=== PATIENT | female | born 1945 | race Caucasian/White ===

== ENCOUNTER 2022-06-09 10:09 | Emergency (ER) | payer MEDICARE, OTHER, SELFPAY ==
[2022-06-09] VITALS (15 sets, daily range): BP systolic 138–167; BP diastolic 57–82; PULSE 48–88; RESP 18; TEMP 36.7; O2SAT 91–100; BMI 36.0
--- NOTE | 2022-06-09 11:01 | CRLHL7_ITS ---
For Patients: As a result of the Century Cures Act, medical imaging exams and procedure reports are released immediately into your electronic medical record. You may view this report before your referring provider. If you have questions, please contact your health care provider. INDICATION: Slurred speech. Recent stroke. Fall 2 weeks ago. LOC. COMPARISON: September 23, 2021 TECHNIQUE: CT examination of the head was performed as axial sections without intravenous contrast. Images were obtained from the vertex of the skull through the skull base. Please note that all CT scans at this facility use dose modulation, iterative reconstruction, and/or weight-based dosing when appropriate to reduce radiation dose to as low as reasonably achievable. FINDINGS: The calvaria are intact. No calvarial fracture. Mild diffuse involutional changes similar to the prior study. This includes cerebellar atrophy. There are moderate white matter changes which are likely small vessel ischemic. Focal area of right frontal encephalomalacia unchanged since 09/23/2021. Low-density area in the left frontal lobe new since the prior study likely a nonacute infarct. There is no hemorrhage in this area. There is no mass effect, midline shift, hemorrhage, edema or visible acute infarction. There is no abnormal extra-axial fluid collection. IMPRESSION: 1. Involutional changes consisting of atrophy and white matter disease. 2. Old right frontal infarct. Low-density area in the left frontal lobe likely an old infarct though it was not present 09/23/2021. 3. No acute appearing finding. No hemorrhage. No calvarial lesion. No abnormal extra-axial fluid collection. Please note that all CT scans at this facility use dose modulation, iterative reconstruction, and/or weight-based dosing when appropriate to reduce radiation dose to as low as reasonably achievable. Dictated by Berlin Crowder MD @ 06/09/2022 12:43:28 PM (Electronically Signed)
--- NOTE | 2022-06-09 11:46 | ED.GENADULT ---
HPI - General Adult General Time Seen by Provider: 11:47 Date Seen: 06/09/22 Chief complaint: Neuro Symptoms/Altered Deficit Stated complaint: From [facility] Time Seen by Provider: 06/09/22 11:27 Source: patient and RN notes reviewed Mode of arrival: ambulatory (Walks with a cane) Limitations: no limitations History of Present Illness HPI narrative: Patient is a 76-year-old female sent from [facility] a clinic for concern of an episode that happened 2 days ago. Shima was outside pain teen, did wear a mask while she was painting, had some empty bottles on a step. She went to clean this up, her laughed, she remembers going to throw some stuff in the trash and that is the last thing she remembers. She came to on the garage floor and was disoriented at 1st, she remembers wondering if she was trying to pain to her legs. She was unclear what did happen. She tried to get up but could not get up due to her knees hurting. She does note she has had a left knee replacement. She is able to ambulate but does still note bilateral knee pain. Her knees are not that painful with ambulation however. She was able to slide herself up against the wall in a graduate had to wait till her came home. She had a cut or a bite to the right lower inner lip. She did have seizures as a teenager per report, further details not known. She did have a stroke in August and was hospitalized at [facility]. She is not sure if there was atrial fibrillation or not but points to a monitor that they put in her. Looks like she has a loop recorder possibly in the left chest wall. She thinks she might be on some type of a blood thinner but does not now. She has no headache, she feels like she is back to her baseline as far as her prior stroke. She does note that she will still maybe have some word-finding difficulty and some slurred speech. She did go through rehab after her stroke. On an aside, she notes she has chronic lymphedema of her lower extremities. Related Data Home Medications Medication Instructions Recorded Confirmed atorvastatin 10 mg tablet 10 mg HS 06/09/22 clopidogrel 75 mg tablet 75 mg DAILY 06/09/22 memantine 5 mg tablet 5 mg 06/09/22 Previous Rx's Medication Instructions Recorded levetiracetam 500 mg tablet 500 mg PO BID #60 tabs 06/09/22 (Keppra) Allergies Allergy/AdvReac Type Severity Reaction Status Date / Time lisinopril Allergy Mild Cough Verified 06/09/22 11:16 amoxicillin Allergy Rash Verified 06/09/22 11:16 Review of Systems Status of ROS: Reports: 10 or more systems reviewed and unremarkable except as noted in History and below PFSH PFSH Social History Smoking Status: Former smoker What tobacco products do you use: cigarettes Smoking quit date/years: >15 years ago Do you use any of these nicotine containing products: None Second hand tobacco smoke exposure: No How often do you have a drink containing alcohol: 2-4 times a month How often do you have six or more drinks on one occasion: Never AUDIT-C Alcohol total score: 2 Non-prescribed substance use: denies use Exam Const: Vital Signs, click to edit/add: Vital Signs - 24 hr 06/09/22 10:58 06/09/22 12:54 Temperature 98.0 F Pulse Rate [Right Pulse Oximeter] 55 L 57 L Respiratory Rate 18 18 Blood Pressure [Ri ght Upper Arm] 163/82 H 142/62 H Pulse Oximetry 97 99 Oxygen Delivery Me thod Room Air Room Air Documenting provider has reviewed patient's vital signs: yes Common normals: no apparent distress, oriented x3, no limitations, healthy appearing, alert and well nourished General appearance: cooperative, comfortable and well kempt Nutritional appearance: obese HENMT: Common normals: normocephalic, head/scalp atraumatic (No visible traumatic lesions, no palpable tender areas), hearing grossly normal bilaterally, external ears normal, external nose normal, nasal mucous membranes and turbinates normal and moist oral mucous membranes (Does have white change on the right lower inner lip from either a bite/fall) Head and scalp: normocephalic and atraumatic (No visible traumatic lesions, no palpable tender areas) Nose: external nose normal and nasal mucous membranes and turbinates normal External ear: external ears normal Throat: posterior oropharynx normal and uvula midline Eye: Common normals: PERRL, EOMs intact bilaterally, conjunctivae normal and no scleral icterus Conjunctiva: conjunctiva(e) normal Pupil: PERRL Neck & C-Spine: Common normals: full ROM (No midline tenderness of her neck), no lymphadenopathy, supple, no meningeal signs, no JVD and thyroid normal Thyroid: thyroid normal Chest: Other: Has an implantable device left upper chest wall Resp: Common normals: normal respiratory effort, no retractions, no use of accessory muscles and clear to auscultation bilaterally Auscultation: clear to auscultation bilaterally Cardio: Common normals: no JVD, regular rate, regular rhythm, S1 normal heart sound, S2 normal heart sound, no gallops, no clicks and no murmurs Rate: regular rate Rhythm: regular rhythm Heart sounds: S1 normal and S2 normal GI: Common normals: Normal to inspection, nondistended, normoactive bowel sounds present, soft to palpation, non-tender, no hepatosplenomegaly and no masses Palpation: soft and no hepatosplenomegaly Extremity: Other: She is tender when I palpate through her pant legs on her knees but is able to stand on them. I had seen patient over in the endoscopy room due to the volume and the acuity in the ED and no ability for private examination. On initial examination, was unable to have her take her pants down and they would not pull up due to her chronic lymphedema. Neuro: Viri Coma Scale: document GCS findings Viri coma scale eye opening: Spontaneous (4) Viri coma scale verbal response: Orientated (5) Viri coma scale motor response: Obey commands (6) Viri coma scale total score: 15 Common normals: oriented x3, CN's II-XII intact bilaterally, moves all extremities, no focal motor deficits and no sensory deficits noted Sensorium/orientation: alert Meningeal signs: no meningeal signs Speech: speech normal (No noted deficits at this time, no word finding difficulty during exam) Psych: Appearance: well kempt Course Course Hospital Course: This patient has had a prior CVA, had an episode with probable loss of consciousness and no recollection for events 2 days ago. This happened in the evening. This certainly sounds suspicious for seizure-type activity. Will repeat neuro imaging, have her on pulse oximetry cardiac monitoring get appropriate labs. I will likely have to talk to Neurology at some point. Patient is not driving right now but does state she does like to drive. Have reviewed with her that in tell we do figure this out it is likely that we will ask her to not be driving. Consultations Consultation #1: Spoke with Dr. Flynn from stroke Neurology at [facility] at 1:30 p.m.. He was able to review her head CT which we had sent up. He believes these areas are her old infarct in she does not need a CTA or MRI. He does agree that this likely was a seizure given her history. He would load her with 1000 mg IV Keppra here and then start 500 mg b.i.d.. She should follow up outpatient with Neurology. I did subsequently reviewed this with the patient, we called her on the phone and reviewed this with him. He will be making his way back up here. I see that pharmacy is coming down with the IV Keppra and this will be initiated. She will be discharged to home once the Keppra is complete. Time: 13:44 Vital Signs Vital signs: Initial Vital Signs Temperature 98.0 F 06/09/22 10:58 Temperature Source Temporal Artery Scan 06/09/22 10:58 Pulse Rate 55 L 06/09/22 10:58 Respiratory Rate 18 06/09/22 10:58 Blood Pressure 163/82 H 06/09/22 10:58 Blood Pressure Mean 109 06/09/22 10:58 Blood Pressure Position Sitting 06/09/22 10:58 Pulse Oximetry 97 06/09/22 10:58 Oxygen Delivery Method 06/09/22 10:58 Vital Signs Temperature 98.0 F 06/09/22 10:58 Pulse Rate 55 L 06/09/22 10:58 Respiratory Rate 18 06/09/22 10:58 Blood Pressure 163/82 H 06/09/22 10:58 Pulse Oximetry 97 06/09/22 10:58 Oxygen Delivery Method 06/09/22 10:58 Temperature 98.0 F 06/09/22 10:58 Pulse Rate 57 L 06/09/22 12:54 Respiratory Rate 18 06/09/22 12:54 Blood Pressure 142/62 H 06/09/22 12:54 Pulse Oximetry 99 06/09/22 12:54 Oxygen Delivery Method 06/09/22 12:54 Medical Decision Making Lab Data Lab results reviewed: Yes I reviewed the patient's lab results Labs: Lab Results 06/09/22 06/09/22 06/09/22 Range/Units 11:57 11:57 11:57 WBC 6.84 (4.50-11.00) K/uL RBC 4.32 (4.00-5.20) m/uL Hgb 13.1 (12.0-16.0) gm/dL Hct 40.0 (33.0-51.0) % MCV 93 (80-100) fL MCH 30 (26-34) pg MCHC 33 (32-36) gm/dL RDW Coeff of Sruthi 12.1 (11.5-15.5) % Plt Count 249 (140-440) K/uL Neut % (Auto) 64.7 (42.0-72.0) % Lymph % (Auto) 23.7 (20-44) % [place] % (Auto) 7.5 (0.0-11.0) % Eos % (Auto) 2.9 (0.0-7.0) % Baso % (Auto) 0.9 (0.0-3.0) % Neut # (Auto) 4.43 (1.7-7.0) K/uL Lymph # (Auto) 1.62 (0.90-2.90) K/uL [place] # (Auto) 0.50 (0.00-0.90) K/UL Eos # (Auto) 0.20 (0.00-0.50) K/uL Baso # (Auto) 0.06 (0.00-0.30) K/uL Abs Immat Gran (auto) 0.02 (0.00-0.30) K/uL Sodium 135 (135-149) mmol/L Potassium 3.9 (3.6-5.1) mmol/L Chloride 101 (96-114) mmol/L Carbon Dioxide 25 (20-32) mmol/L BUN 18 (7-30) mg/dL Creatinine 1.0 (0.5-1.5) mg/dL Estimated Creat Clear 46.54 Estimated GFR 58 ml/min Glucose 97 (60-115) mg/dL Calcium 9.7 (8.4-10.6) mg/dL Magnesium 2.1 (1.5-2.6) mg/dL Total Bilirubin 0.8 (0.1-1.5) mg/dL AST 53 H (12-35) U/L ALT 28 (4-35) U/L Alkaline Phosphatase 70 (40-150) U/L C-Reactive Protein < 0.5 L (0.5-1.0) mg/dL NT-Pro-B Natriuret Pep 779 H (0-450) PG/mL Total Protein 7.2 (6.0-8.3) g/dL Albumin 4.3 (3.3-5.0) g/dL TSH (0.270-4.200) uIU/mL SARS-CoV-2 (PCR) (Negative) POC Troponin I 0.00 L (0.01-0.04) ng/ml 06/09/22 06/09/22 Range/Units 11:57 11:57 WBC (4.50-11.00) K/uL RBC (4.00-5.20) m/uL Hgb (12.0-16.0) gm/dL Hct (33.0-51.0) % MCV (80-100) fL MCH (26-34) pg MCHC (32-36) gm/dL RDW Coeff of Sruthi (11.5-15.5) % Plt Count (140-440) K/uL Neut % (Auto) (42.0-72.0) % Lymph % (Auto) (20-44) % [place] % (Auto) (0.0-11.0) % Eos % (Auto) (0.0-7.0) % Baso % (Auto) (0.0-3.0) % Neut # (Auto) (1.7-7.0) K/uL Lymph # (Auto) (0.90-2.90) K/uL [place] # (Auto) (0.00-0.90) K/UL Eos # (Auto) (0.00-0.50) K/uL Baso # (Auto) (0.00-0.30) K/uL Abs Immat Gran (auto) (0.00-0.30) K/uL Sodium (135-149) mmol/L Potassium (3.6-5.1) mmol/L Chloride (96-114) mmol/L Carbon Dioxide (20-32) mmol/L BUN (7-30) mg/dL Creatinine (0.5-1.5) mg/dL Estimated Creat Clear Estimated GFR ml/min Glucose (60-115) mg/dL Calcium (8.4-10.6) mg/dL Magnesium (1.5-2.6) mg/dL Total Bilirubin (0.1-1.5) mg/dL AST (12-35) U/L ALT (4-35) U/L Alkaline Phosphatase (40-150) U/L C-Reactive Protein (0.5-1.0) mg/dL NT-Pro-B Natriuret Pep (0-450) PG/mL Total Protein (6.0-8.3) g/dL Albumin (3.3-5.0) g/dL TSH 2.790 (0.270-4.200) uIU/mL SARS-CoV-2 (PCR) Negative SARS-CoV-2 (Negative) POC Troponin I (0.01-0.04) ng/ml Imaging Data CT scan - head: Attestation: I have reviewed the pertinent imaging results. Radiologist's impression: Patient: SHIMA ELLIS Facility:?[facility] Patient ID:?[id number] Site Patient ID:?[id number]. Site :?[id number] Study:?CT Head w/o-06/09/2022 12:18:40 PM Ordering Physician:?Jaspal Hong Final Report: INDICATION: Slurred speech. Recent stroke. Fall 2 weeks ago. LOC. COMPARISON: September 23, 2021 TECHNIQUE: CT examination of the head was performed as axial sections without intravenous contrast. Images were obtained from the vertex of the skull through the skull base. Please note that all CT scans at this facility use dose modulation, iterative reconstruction, and/or weight-based dosing when appropriate to reduce radiation dose to as low as reasonably achievable. FINDINGS: The calvaria are intact. No calvarial fracture. Mild diffuse involutional changes similar to the prior study. This includes cerebellar atrophy. There are moderate white matter changes which are likely small vessel ischemic. Focal area of right frontal encephalomalacia unchanged since 09/23/2021. Low-density area in the left frontal lobe new since the prior study likely a nonacute infarct. There is no hemorrhage in this area. There is no mass effect, midline shift, hemorrhage, edema or visible acute infarction. There is no abnormal extra-axial fluid collection. IMPRESSION: 1. Involutional changes consisting of atrophy and white matter disease. 2. Old right frontal infarct. Low-density area in the left frontal lobe likely an old infarct though it was not present 09/23/2021. 3. No acute appearing finding. No hemorrhage. No calvarial lesion. No abnormal extra-axial fluid collection. Please note that all CT scans at this facility use dose modulation, iterative reconstruction, and/or weight-based dosing when appropriate to reduce radiation dose to as low as reasonably achievable. Dictated by Berlin Crowder MD @ 06/09/2022 12:43:28 PM (Electronic Signature) ECG Data Attestation: I personally reviewed and interpreted this ECG as follows: (Sinus bradycardia, 55 beats per minute, QT corrected 484 milliseconds. No ischemia.) Prior ECG tracings: not available for review Critical Care Time Critical Care Time Critical Care Time: No Discharge Plan Discharge Clinical Impression: Seizure, History of ischemic right MCA stroke Patient Disposition: Home, Self-Care Condition: Stable Instructions: New-Onset Seizure in Adults (ED) Additional Instructions: Start Keppra 500 mg twice a day, next dose this evening. Need to get scheduled with outpatient Neurology, can have your primary care provider put through the referral. Please see your primary care provider within the next 1-3 days or as soon as possible. Did provide you with refills on the Keppra in case neurology consultation is a ways out. Activity Level: Activity as Tolerated Activity Detail: No swimming or taking baths alone. Showering is fine. Want to avoid water submerging if seizure should happen and there is no one there to rescue you. Prescriptions: New levetiracetam [Keppra] 500 mg tablet 500 mg PO BID Qty: 60 2RF No Action atorvastatin 10 mg tablet 10 mg HS clopidogrel 75 mg tablet 75 mg DAILY memantine 5 mg tablet 5 mg Stand Alone Forms: [facility] Info Instructions
--- NOTE | 2022-06-09 11:47 | CRLHL7_ITS ---
For Patients: As a result of the Cures Act, medical imaging exams and procedure reports are released immediately into your electronic medical record. You may view this report before your referring provider. If you have questions, please contact your health care provider. Indication: Trauma Technique: Two views each of each knee were acquired Comparison: None Findings: Left knee: Arthroplasty. No fracture, dislocation or destructive process. Normal alignment. No joint effusion. No abnormal lucency about the implant. The implant appears to be intact. Right knee: Osteoarthritis, mild, primarily involving the medial compartment. No fracture, dislocation or destructive process. No joint effusion. Bilaterally, the osseous structures are demineralized. Impression: Left knee arthroplasty. Mild degenerative changes of the right knee. No visible acute fracture, dislocation or destructive process on either side. No complication identified involving the left knee arthroplasty Dictated by Berlin Crowder MD @ 06/09/2022 12:49:40 PM (Electronically Signed)
[2022-06-09 12:11] LABS: Basophils Absolute Auto 0.06 K/uL (0.00-0.30); Basophils Percent Auto 0.9 % (0.0-3.0); Eosinophils Percent Auto 2.9 % (0.0-7.0); Hemoglobin* 13.1 gm/dL (12.0-16.0); Immature Granulocytes Abs Auto 0.02 K/uL (0.00-0.30); Lymphocytes Absolute Auto 1.62 K/uL (0.90-2.90); Lymphocytes Percent Auto 23.7 % (20-44); Mean Corpuscular HGB Conc 33 gm/dL (32-36); Mean Corpuscular Hemoglobin 30 pg (26-34); Mean Corpuscular Volume 93 fL (80-100); Monocytes Percent Auto 7.5 % (0.0-11.0); Neutrophils Absolute Auto 4.43 K/uL (1.7-7.0); Neutrophils Percent Auto 64.7 % (42.0-72.0); Platelet Count* 249 K/uL (140-440); RDW Coefficient of Variation % 12.1 % (11.5-15.5); Red Blood Count 4.32 m/uL (4.00-5.20); White Blood Count* 6.84 K/uL (4.50-11.00)
[2022-06-09 12:17] LABS: Slide Review Reflex No
[2022-06-09 12:30] LABS: Albumin* 4.3 g/dL (3.3-5.0); Chloride* 101 mmol/L (96-114); Potassium* 3.9 mmol/L (3.6-5.1); Sodium* 135 mmol/L (135-149)
[2022-06-09 12:32] LABS: Est. Creatinine Clearance* 46.54; Estimated Glomerular Filt Rate 58 ml/min
[2022-06-09 12:33] LABS: Alanine Aminotransferase* 28 U/L (4-35); Alkaline Phosphatase* 70 U/L (40-150); Aspartate Amino Transferase* 53 U/L (12-35); Bilirubin Total* 0.8 mg/dL (0.1-1.5); Blood Urea Nitrogen* 18 mg/dL (7-30); Carbon Dioxide* 25 mmol/L (20-32); Glucose* 97 mg/dL (60-115); Total Protein* 7.2 g/dL (6.0-8.3)
[2022-06-09 12:34] LABS: Calcium* 9.7 mg/dL (8.4-10.6); Magnesium* 2.1 mg/dL (1.5-2.6)
[2022-06-09 12:42] LABS: C Reactive Protein* < 0.5 mg/dL (0.5-1.0); NT Pro B Type NatriureticPept* 779 PG/mL (0-450)
[2022-06-09 12:50] LABS: SARS PCR* Negative SARS-CoV-2 (Negative)
== END 2022-06-09 14:55 | disposition home or self-care (01) ==
PROVIDERS: Emergency Provider Family Medicine; PCP Physician Assistant Medical
DX: R56.9 Unspecified convulsions (principal); Z86.73 Personal history of transient ischemic attack (TIA), and cerebral infarction without residual deficits
CPT/HCPCS: 36415; 70450; 73560; 80053; 83735; 83880; 84443; 85025; 86140; 87635; 93005; 96365; 99284; 99285; J1953

== ENCOUNTER 2023-03-25 11:00 | Outpatient (RCR) | payer MEDICARE, OTHER, SELFPAY | END 2023-07-23 23:59 | disposition home or self-care (01) | PROVIDERS: PCP Physician Assistant Medical; Visit Provider Physician Assistant Medical | DX: K59.09 Other constipation (principal); Z51.89 Encounter for other specified aftercare | CPT/HCPCS: 97110; 97140; 97163; 97535 ==

== ENCOUNTER 2024-07-10 10:30 | Outpatient (RCR) | payer MEDICARE, OTHER, SELFPAY ==
--- NOTE | 2024-01-18 11:45 | OT.OPLDN2 ---
OT Outpatient Lymphedema Daily Note OT Outpatient Lymphedema Daily Note* Start: 12/14/23 15:10 Freq: Status: Active Protocol: Document 01/18/24 11:17 LCN (Rec: 01/18/24 11:28 LCN [id number]) E-signed By Chula Russell, OTR/L, CLT Type of Note Type of Note Type of Note Daily Note Visit Number [id number] OT OP Lymphedema Daily/Progress Note Current Condition/Medical Diagnosis Referring Provider Blanca MARCELINO Medical Contraindications Heart Condition,HTN,Epilepsy, Respiratory Medical History Medical History Obesity,CVI Medical History Comments Extensive issues with bowel incontinence /diarrhea ( hardly leaving house anymore, only if well timed many hours after eating). Has had PT pelvic help for this in the past when constipation was more the concern. Had extensive perineal tearing with one of her childbirths. Takes an evening muscle relaxer to help with insomnia, sleeps through 3-4 am if having the medication, other newby struggles without it. 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 Another milder CVA 06/09/22 smaller at L frontal area. Surgical History Surgical History Has had left knee replacement 16 yrs ago. Medications Medications Anticoagulation with INR checks every 90 days. No water pills. Family History Family History of Lymphedema Yes Family History of Lymphedema Comments grandmother (large hips/thighs , knees to ankle cuffs, narrow feet, ribs and shoulders), uncle (weeping lymphedema, keartotic changes) Subjective Subjective Wearing her BK OTC stockings until she can self marisol her velcro comrpession wraps. Liner stockings 15-25 mmHG are going on easily for her, willl need another trial session for self donning wraps . Her new Tatyana compression leggings waist to open toe are in, but she was not able to self-marisol, getting seams ankle aligned is challenging. Ordered compression wraps via [facility] [employer] [facility] are in. Shima Shahid is an insightful 78 y/o female who is recovering after her set of strokes in 2021 and was directed to look at taking care of her lymphedema by her aquatic automotive instructor, after reporting she hasn't belling down/deep creases at ankle folds making her 20-30 mmHG below knee compression no longer effective. Living Situation Current Living Situation Home With Spouse Or SO Current Living Situation Comments Lives her locally, who is very active outside/ yardwork has some OA. 2 daughters live in [place]. Patient Difficulties Difficulties With Any Of The Following Walking,Dressing,Reaching Feet & Toes,Preparing Meals Patient Difficulties Comments her skin hurts with donning stockings over them, hard to lift legs up into car and bed surfaces. Impairments Impairments Loss of Mobility,Difficulties With ADLs,Limb Heaviness,Poor Clothing Fit Impairments Comments Has to buy pants 2 sizes too big at waist to allow room for calves, thighs. Problem List Problem List Limited Knowledge of Lymphedema Treatment/Condition /Precautions,Limited Knowledge of Skin Care & Infection Precautions,Significant Risk For Infection For Lymphedema Related Complications,Does Not Have a HEP,Does Not Know How To Bandage For Limb Reduction, Does Not Have Appropriate Compression Garments For LT Management,Presents With Increased Fall Risk Secondary To Lymphedema,Presents With Impaired Mobility/ROM Exercise History Does Patient Exercise Regularly Yes Exercise Comments Goes to aquatic exercise 2x week at [facility]. Pedals her leg ergometer on floor 15 min everyday. Pain Pain Yes ROM/Strength ROM/Strength Comments Knee flexion limited to 100 degrees per soft tissue impingement , ankle dorsiflexion to 25 of 45 degrees B. Previous Treatment Previous Treatment For Swelling/ Compression Garment,Elevation Lymphedema Previous Treatment/Current Home Program Has had OT here at [facility] with Clare Valencia to address Lymphedema x 3-4 visits in 2013, was d/c with 20-30 mmHG stocking/silicone tops after trial of doing short stretch bandage wraps. Compression History Does Patient Currently Wear Compression No During Daytime Compression During Daytime Comments 23-30 mmHG below stockings too painful. Has tried many makes including zippers and silicone tops. Does Patient Currently Wear Compression No At Night Compression At Night Comments COMPRESSION IS MEDICALLY NECESSARY: Pt is affected by lymphedema trunk to toes with painful skin, limb heaviness for managing legs into pants, bed and car seat. Has springy fluffy, non-pitting edema at B thighs, thick creases, rubbery thin skin, raised varicosities for B lower 2/3 of shins, (+) Stemmer's Sign with redness for B feet. Day/Night time-- Would benefit from use of inelastic 20-50 mmHG velcro wraps BK w 15-25 mmHG liner stockings and use store bought upholstery mechanic compression capris to manage edema at thigs, hips. Current Swelling (Location/Pitting/Texture) Pitting Scale: 0 = No pitting 1+ Tissue returns to normal almost immediately 2+ Tissue returns after 15-30 seconds 3+ Tissue returns after 1-1/2 minutes 4+ Tissue returns after 2-3 minutes N/A Tissue no longer pits due to induration Tissue texture: Soft or indurated Clinical Presentation Area hips to ankles B affected by spongy firm non pitting edema with smooth pliable skin, fixed creases at medial knees , ankle cuffs. Distended toes , lower 2/3 of B legs are red/ purple. Scattered reticular varicosities. Cold skin temperature. Good capillary refill and pedal pulses. (+) Stemmers sign at toes. Triggering Event & Start Date of started in December 2013, presented Swelling/Lymphedema initially as limb heaviness with fatigue during walking, tolerating 1 block at that time. Had tried diuretics and UYEN wrapping for day hours at that time. Her hips and thigh lymphedema have steadily worsened since then and more so after her 2021 CVA's with his shorter shuffling gait and and new cane use. Skin Changes Hemosiderin Staining,Toe/Foot Deformities,Fibrosis,Limited Skin Mobility Positive Stemmer's Sign Yes Capillary Refill Brisk Type of Swelling Secondary Staging Staging Stage 3 Circumferential Measurements Lower Extremity Left Lower Extremity Great Toe (in cm) 7.2 MTP (in cm) 22.5 Arch (in cm) 22.5 Distance Between MTP's and Arch 4 Circumference Measurement Calcaneus (in cm) 32.3 Distance Between Arch and Calcaneus 8 Circumference Measurement 10 cm above Calcaneus Measurement 29 20 cm above Calcaneus Measurement 42.8 30 cm above Calcaneus Measurement 52.5 40 cm above Calcaneus Measurement 46 50 cm above Calcaneus Measurement 55 60 cm above Calcaneus Measurement 63.5 70 cm above Calcaneus Measurement 68.5 Total Girth in cm 441.8 Previous Total Girth in cm 446.8 Difference in Total Girth in cm -5.0 LE Volume A 161.14 LE Volume B 483.04 LE Volume C 748.29 LE Volume D 1038.23 LE Volume E 1813.06 LE Volume F 1933.00 LE Volume G 4 LE Volume H 2798.41 LE Volume I 3468.05 Lower Extremity Volume Total in cm 14,477.22 Previous Lower Extremity Volume Total in 14,766.8 cm Lower Extremity Volume Total Difference -289.58 in cm Right Lower Extremity Great Toe (in cm) 7.3 MTP (in cm) 21.9 Arch (in cm) 22 Distance Between MTP's and Arch 4 Circumference Measurement Calcaneus (in cm) 32.5 Distance Between Arch and Calcaneus 8 Circumference Measurement 10 cm above Calcaneus Measurement 29 20 cm above Calcaneus Measurement 43.5 30 cm above Calcaneus Measurement 52 40 cm above Calcaneus Measurement 48.8 50 cm above Calcaneus Measurement 51 60 cm above Calcaneus Measurement 60.5 70 cm above Calcaneus Measurement 69 Total Girth in cm 437.5 Previous Total Girth in cm 442.2 Difference in Total Girth in cm -4.7 LE Volume A 153.36 LE Volume B 478.57 LE Volume C 753.26 LE Volume D 1059.64 LE Volume E 1819.20 LE Volume F 2022.07 LE Volume G 1981.80 LE Volume H 2479.30 LE Volume I 3341.12 Lower Extremity Volume Total in cm 14,088.32 Previous Lower Extremity Volume Total in 14,618.2 cm Lower Extremity Volume Total Difference -529.88 in cm Circumferential Measurements Trunk Waist 102 Hips 128 Total Girth in cm 230 Assessment Assessment Working towards being (I) with self donning and massage techniques; need extra repetitions of education per CVA/new learning more challenging. Shima is having impaired integrity of skin & lymphedema lead to increased risk infection & skin breakdown.?Pt c/o decreased mobility of BLE d/t bulk of swelling in legs and impaired fit of pants. Legs are heavy, hard to feel where feet are, limited standing tolerance. Treatment Self-Care/Home Management Minutes ( 65 minutes) Self-Care/Home Management Comments OTR and pt work together to marisol compression capris Tatyana [employer] open toe to high waist leggings. Added use of dycem pad pn the fllor to adjust foot/ankle and also to smooth out wrinkles. Pt needed step by step cues for hand placement, seam placement and cues to takes breaths/ pace between steeps. Added modification of ankle cuff to reduce foot gapping of material. Competed trial session of self donning the velcro wraps, needing step by step cues, but has good sense of tension, strap direction and was able to return demo with 25% cues on 2nd side. Pt to wear her 20-30 mmHG OTC stockings on days between OT sessions. Pt wanting cheaper option for 2nd set of trunk compression capris. Issued ordering info for Under Armor 2 XL high waist to wear with her velcro wraps and foot/calf liners. OTR re-instructs HEP from visual aide with deep breaths x 5, MLD LN facilitation (x [address] each, guiding for gentle pressure) above clavicle/Terminus, axilla, inguinal LN, lateral trunk ING to AX, and pumping exercises (x 10 reps each)w trunk rotation. Pt needed step by step cues for this as well. Total Occupational Therapy Minutes 65 Patient Goals Patient Goals Hoping her legs can feel upholstery mechanic, easier to bend and tolerate clothing textures on her sensitive skin. Short Term Goals Goal: Patient and or caregiver will understand lymphedema precautions to decrease risk of infection and further lymphedema related complications Goal: Patient will develop a tolerance for wearing multi-layer, short stretch bandages between treatment sessions to facilitate limb decongestion Goal: Patient will experience decreased pitting edema in order to improve tissue health and decrease risk for infection/cellulitis Goal: Patient will perform HEP with minimal assistance in order to improve lymphatic flow and venous return Goal: Patient will perform self MLD protocol with minimal assistance to help reduce swelling and improve ROM and mobility Colon Therapist Goals (# of Weeks) 6 Intermediate Goals Goal: Patient and/or caregiver will be independent with short-stretch compression bandaging for continued volume reduction and prevention of recurrence Goal: Patient will experience increased ROM and mobility in order to improve safety and independence with transfers and mobility Goal: Patient will be independent with donning and doffing of compression garments which will enable regular daily garment wear Goal: Patient will achieve a specific reduction of cm from total measurements to enable functional improvements such as fitting into standard sized clothing and shoes, return to a prior level of functional mobility, improved balance, and reduced risk of falling. Indicate cm in comments below Goal: Patient and/or caregiver will be independent with HEP and lymphedema management to reduce risk for edema relapse and to reduce risk for infection Treatment Plan Treatment Plan Evaluation,Edema Control, Manual Therapy,Therapeutic Exercise,Self-Care/Home Management,Education Expected Frequency 1-2x Week Expected Duration 8-10 Weeks Occupational Therapy Billing Units Treatment Minutes Timed Treatment Minutes 65 Total Treatment Minutes 65 Billing Units Self Care/Home Management 4
== END 2024-11-07 23:59 | disposition home or self-care (01) ==
PROVIDERS: PCP Physician Assistant Medical; Visit Provider Physician Assistant Medical
DX: I89.0 Lymphedema, not elsewhere classified (principal); Z51.89 Encounter for other specified aftercare
CPT/HCPCS: 97140; 97165; 97535

== ENCOUNTER 2025-04-23 11:26 | Emergency (ER) | payer MEDICARE, OTHER, SELFPAY ==
[2025-04-23] VITALS (28 sets, daily range): BP systolic 122–195; BP diastolic 70–96; PULSE 51–61; RESP 5–32; TEMP 35.9; O2SAT 87–100
--- OUTSIDE RECORDS SUMMARY | 2025-04-23 11:28 | XMS_ITS | Clinical Summary ---
Author Organization [employer] [facility] Address [address] [place] [address] Care Team Providers Care Chainstitch Zipper Setter Name Role Phone Blanca Rush Primary Care Provider Allergies Active Allergy Reactions Criticality Noted Date Comments Amoxicillin 11/01/2006 ? Ciprofloxacin Rash,Itching 08/05/2010 Hydrochlorothiazide Intolerance-Can't Take 03/20/2008 Hyponatremia Lisinopril Cough 04/02/2008 Hydrocodone-Acetaminophen Other - Descri be In Comment Field 05/01/2008 On stopping, anxiety and agitation Medications FLONASE spray USE 1 TO 2 SPRAYS IN EACH NOSTRIL EVERY DAY 48 g 2 03/15/20 13 Active LOTEMAX 0.5 % ophthalmic gel Place 1 Drop into both eyes 4 times daily if needed. 09/14/19 19 Active ALPRAZolam (XANAX) 0.5 mg tabletIndications :Fear of flying Take 1 tablet by mouth at bedtime if needed for Anxiety. 4 tablet 03/06/20 Active inhalational spacing deviceIndications :Chronic obstructive pulmonary disease, unspecified COPD type (HC) For home use. 1 Device 08/20/20 Active NebulizerIndicati ons:Cough,Asthma, unspecified asthma severity, unspecified whether complicated, unspecified whether persistent (HC),COPD with chronic bronchitis (HC) Nebulizer, disposable neb kit x 4, reuseable neb kit x 1, mask x 1, filters x 1. Frequency of use: daily; Medication: Duoneb Length of need: 99 months 1 Device 09/03/19 20 Active WalkerIndications :Acute CVA (cerebrovascular accident) (HC) Walker with front wheels for home use. 1 Each 09/26/19 22 Active albuterol-ipratro pium (DUONEB) (2.5-0.5 mg) in 3 mL NEBULIZATION solutionIndicatio ns:Cough variant asthma (HC) INHALE THE CONTENTS OF 1 VIAL VIA NEBULIZER EVERY 6 HOURS IF NEEDED FOR COUGH AND SHORTNESS OF BREATH 90 mL 44 11/10/19 23 Active Wixela Inhub 250-50 mcg/dose diskus inhalerIndication s:Cough variant asthma (HC),Bronchitis USE 1 INHALATION TWICE A DAY 180 Each 3 11/10/19 23 Active propylene glycoL (Systane Complete) 0.6 % ophthalmic solutionIndicatio ns:Dry eyes Apply two drops 2-4 times a day. 20 mL 5 11/16/19 23 Active Graduated Compression StockingsIndicati ons:Toe pain, bilateral,Venous insufficiency For personal use. Length: Knee Strength: 20-30 mmHg 1 Packet 3 12/10/19 23 Active triamcinolone 0.5% (ARISTOCORT) 0.5 % creamIndications: Chronic eczema Apply topically to affected area(s) two times daily. 60 g 1 01/06/20 24 Active albuterol HFA (PRO-AIR; VENTOLIN; PROVENTIL) 90 mcg/actuation inhalerIndication s:Cough variant asthma (HC) Inhale 1-2 Puffs by mouth every 4 hours if needed for Shortness Of Breath. 8.5 g 20 08/01/20 24 Active atorvastatin 10 mg tabletIndications :Acute CVA (cerebrovascular accident) (HC) Take 1 Tablet (10 mg) by mouth at bedtime. 90 Tablet 3 01/29/20 25 Active citalopram 40 mg tabletIndications :Anxiety,Depressi on, unspecified depression type Take 1 Tablet (40 mg) by mouth once daily in the morning. 90 Tablet 3 01/29/20 25 Active clopidogreL 75 mg tabletIndications :Acute CVA (cerebrovascular accident) (HC) Take 1 Tablet (75 mg) by mouth once daily in the morning. 90 Tablet 3 01/29/20 25 Active furosemide 20 mg tabletIndications :HTN (hypertension) Take 1 Tablet (20 mg) by mouth once daily in the morning. 90 Tablet 3 01/29/20 25 Active levETIRAcetam 500 mg tabletIndications :Seizure (HC) Take 1 Tablet (500 mg) by mouth two times daily. 180 Tablet 3 01/29/20 25 Active levothyroxine 88 mcg tabletIndications :Hypothyroidism, unspecified type Take 1 Tablet (88 mcg) by mouth once daily. 90 Tablet 3 01/29/20 25 Active metoprolol tartrate 25 mg tabletIndications :HTN (hypertension) Take 1 Tablet (25 mg) by mouth two times daily. 180 Tablet 01/29/20 25 Active pramipexole 0.5 mg tabletIndications :Restless legs syndrome (RLS) TAKE ONE TABLET AT BEDTIME. 90 Tablet 01/29/20 25 Active RABEprazole 20 mg tabletIndications :Gastroesophageal reflux disease, unspecified whether esophagitis present Take 1 Tablet (20 mg) by mouth once daily. 90 Tablet 01/29/20 25 Active tiZANidine 4 mg tabletIndications :Muscle spasm TAKE 1 TABLET BY MOUTH TWICE DAILY NEEDED 180 Tablet 01/29/20 25 Active valsartan 160 mg tabletIndications :HTN (hypertension) Take 1 Tablet (160 mg) by mouth two times daily. 180 Tablet 01/29/20 25 Active memantine 5 mg tabletIndications :Acute CVA (cerebrovascular accident) (HC) Take 1 Tablet (5 mg) by mouth once daily. 90 Tablet 3 01/29/20 25 Active nystatin powder (Nystop) powderIndications :Fungal infection Apply a thin amount to the rash daily as needed 120 g 01/29/20 25 Active buPROPion (WELLBUTRIN XL) 150 mg Extended-Release tabletIndications :Depression, unspecified depression type Take 1 Tablet (150 mg) by mouth once daily in the morning. 30 Tablet 1 04/15/20 25 Active buPROPion 75 mg HCl tabletIndications :Depression, unspecified depression type Take 1 Tablet (75 mg) by mouth once daily. Based on updated ISMP guidelines, DO NOT crush or chew. 30 Tablet 1 03/18/20 25 025 Discontin ued(*Medi cation adjustmen t) buPROPion (WELLBUTRIN XL) 150 mg Extended-Release tabletIndications :Depression, unspecified depression type Take 1 Tablet (150 mg) by mouth once daily in the morning. 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 repeat echo Morbid obesity 07/21/2012 Gastropathy 02/14/2012 Abdominal pain, epigastric 01/25/2012 Overview (01/25/2012): EGD 12/2011 Reactive gastropathy Dysphagia, unspecified(787.20) 01/18/2012 Gallstones 12/28/2011 DONNA 06/30/2011 AHI-21 07/11/2011 Restless legs syndrome (RLS) 05/24/2011 Seborrhea capitis 04/22/2009 Knee joint replacement by other means 12/26/2007 Unspecified hypothyroidism 02/10/2007 Benign neoplasm of colon 01/24/2007 Overview (04/14/2015): Colonoscopy 01/2010 appendiceal polyp not removed, needs surgical resection Colonoscopy 01/2012 polyps repeat in [address] colonography 03/2015 normal, repeat in 5 years Diverticulosis of colon (without mention of hemo rrhage) 01/24/2007 Paroxysmal supraventricular tachycardia 11/02/19 07 Unspecified sleep apnea 11/01/2006 Osteoarthrosis, unspecified whether generalized or localized, hand 11/01/2006 Mitral valve disorders 11/01/2006 Assessment & Plan (04/15/2014 5:59 PM CDT): Per echocardiogram of March 2014, mild mitral regurgitation with normal LVEF Major depressive disorder, recurrent episode, un specified 11/01/2006 Unspecified asthma(493.90) Overview (11/27/2007): mild Unspecified essential hypertension Resolved Problems Problem Noted Date Diagnosed Date Resolved Date long-term (current) use of anticoagulants 12/28/2007 10/31/2008 long term care pharmacist (current) use of anticoagulants 12/26/2007 01/31/2008 Depressive disorder, not elsewhere classified 11/02/19 07 01/31/2008 Palpitations 11/01/2006 12/28/2011 Encounters Date Type Department Care Team Description 04/16/[address] [address] Blanca Rush PA Results 04/15/2025 10:30 AM CDT Office Visit [address] [address] Blanca Rush PA Medication Management (Wellbutrin - feeling more at peace but more tired and not feeling like doing anything, feeling neutral ) 04/15/2025 Travel 03/21/[address] [address] Blanca Rush PA Form 03/19/2025 Refill [facility] [address] [place] [address] Blanca Rush PA Refill Request (Bupropion HCL tabs 75mg) 03/18/2025 10:50 AM CDT Office Visit [facility] [address] [place] [address] Blanca Rush PA Follow Up (Lab results) 03/18/2025 Travel 01/28/2025 11:45 AM CDT Ancillary Procedure [facility] [address] [place] [address] 01/28/2025 10:30 AM CDT Office Visit [facility] [address] [place] [address] Blanca Rush PA Medicare ANNUAL (subsequent) Visit (79 years old); Concerns (Been drooling and doesn't even notice it x 2-3 months, wondering if she had another mild stroke and didn't know it); Leg Pain/problem (R leg pain and limping); Fatigue (Very tired all the time) 01/28/2025 Travel from Last 3 Months Immunizations Immunization Administration Dates Next Due AMB INFLUENZA IIV3 (AGE 65+ YRS) PF (Flu Clinic Only) 06/01/2019 AMB Influenza, IIV3 (Age >=3 years)(Flu Clinic Only) 06/22/2012,06/15/2011 Amb Influenza, Inact (High-d ose) (Flu Clinic Only) 06/06/2015 Influenza, High-dose Inactivated 05/12/2016,04/2015,05/13/2014 Influenza, IIV3 (Age 6-35 mos) 06/15/2011 Influenza, IIV3 (Age >=3 years) 06/29/20 13,06/22/2012,07/07/2010,2008,09/07/2006 Influenza, Inactivated AIIV4 (Age 65+ Years) Preserv Free 06/02/2022,08/14/2021,06/13/2020 Influenza, Inactivated IIV3 (Age 65+ Years) Preserv Free 05/30/2019,05/29/2018,05/13/2017 Pneumococcal Poly,23-Valent (Pneumovax) 10/08/2011,09/07/2006 Pneumococcal conj 13-Valent (Prevnar 13) 05/13/2017 Td (Age >=7 Years) 04/26/2018,02/06/2003 Tdap 02/19/2011 Family History Medical History Relation Name Comments Cancer Maternal Aunt lung Cancer Mother esoph Other Sister migraines Cancer-breast No Family History Cancer-prostate No Family History Relation Name Status Comments Child Alive Daughter Alive Father (Age 82) mi or cva Maternal Aunt Mother Sister Social History Tobacco Use Types Packs/Day Years Used Date Smoking Tobacco: Former Cigarettes 2 17 0 08/29/1958 - 08/29/1975 Smokeless Tobacco: Never Tobacco Cessation:Counseling Given: No Comments:quit over 30 years ago Alcohol Use Standard Drinks/Week Comments Yes 0 (1 standard drink = 0.6 oz pur e alcohol) Tuesday nights PHQ-2 Answer Date Recorded PHQ-2 TOTAL SCORE 2 01/28/2025 Social Connections Answer Date Recorded Do you often feel lonely or isolated from those around you? 0 01/28/2025 Financial Resource Strain Answer Date R ecorded Difficulty of Paying Living Expenses 3 01/28/2025 Difficulty of Paying Living Expenses Not on file 01/28/2025 Food Insecurity Answer Date Recorded Do you worry your food will run out before you are able to buy more? 1 01/28/2025 Transportation Needs Answer Date Record ed Does lack of transportation keep you from medica l appointments? 1 01/28/2025 Does lack of transportation keep you from work, meetings or getting things that you need? 1 01/28/2025 Housing Stability Answer Date Recorded What is your housing situation today? 1 01/28/2025 Utilities Answer Date Recorded Do you have trouble paying f or utilities (for example, heat, electricity, water, phone)? 1 01/28/2025 Comments No Sex and Gender Information Value Date Recorded Sex Assigned at Not on file Legal Sex Female 5:20 AM MARKETING ACCOUNT MANAGER Gender Identity Not on file Sexual Orientation Not on file Obstetrics History Last Filed Vital Signs Vital Sign Reading Time Taken Comments Blood Pressure 132/78 04/15/2025 10:33 AM CDT Pulse 52 04/15/2025 10:33 AM CDT Temperature 36.7 C (98 F) 08/08/2024 1:44 PM MARKETING ACCOUNT MANAGER Respiratory Rate 20 10/13/2021 9:05 AM MARKETING ACCOUNT MANAGER Oxygen Saturation 96% 04/15/2025 10:33 AM CDT Inhaled Oxygen Concentration - - Weight 112.9 kg (249 lb) 04/15/2025 10:33 AM CDT Height 167.5 cm (5' 5.95) 01/28/2025 10:41 AM C DT Body Mass Index 40.26 01/28/2025 10:41 AM CDT Plan of Treatment Upcoming Encounters Date Type Department Care Team (Late st Contact Info) Description 06/03/2025 10:30 AM CDT Office Visit [facility] [address] [place] [address] Blanca Rush PA [address] [place] [address] 10/11/2025 Cardiac Device Check [facility] [phone] Health Maintenance Due Date Last Done Comments Zoster (shingles) series for age 50+ (1 of 2) 1964 RSV vaccine for adults or (1 - 1-dose 75+ series) 2020 COVID-19 vaccine series (3 - Pfizer risk series) 12/27/2020 11/29/2020, 11/08/2020 Influenza Vaccine (#1) 2025 , 08/14/2021, 06/13/2020, Additional history exists BMI (ht and wt on same day) for age 18+ 01/28/2026 01/28/2025, 06/06/2023, 07/06/2022, Additional history exists Depression screening for age 12+ 01/28/2026 01/28/2025, 06/06/2023, 06/02/2022, Additional history exists Medicare Wellness for age 65+ 01/29/2026 01/28/2025, 06/06/2023, 06/02/2022, Additional history exists Tetanus booster 04/26/2028 04/26/2018, 01/28, 02/06/2003 DEXA/DXA scan for age 65+ Completed 10/19/2011, 06/2003 Pneumococcal series for age 50+ Completed 05/13/2017, 10/08/2011, 09/07/2006 Hepatitis C screening for age 18-79 Completed 06/05/2019 Hepatitis B series for 19+ Aged Out N o longer eligible based on patient's age to complete this topic Procedures Procedure Name Priority Date/Time Associated Diagnosis Comments BASIC METABOLIC PANEL Routine 04/15/2025 11:09 AM CDT Elevated serum creatinine HEMOGLOBIN Routine 03/18/2025 11:03 AM CDT Iron deficiency anemia, unspecified iron deficiency anemia type CREATININE Routine 03/18/2025 11:03 AM CDT Elevated serum creatinine XR KNEE WB 2 VIEWS BILATERAL AND 1 VIEW RIGHT Routine 01/28/2025 12:05 PM CDT Chronic pain of right knee TSH Routine 01/28/2025 11:43 AM CDT Hypothyroidism, unspecified type BASIC METABOLIC PANEL Routine 01/28/2025 11:43 AM CDT HTN (hypertension) LIPID PANEL W REFLEX MEASURED LDL Routine 01/28/2025 11:43 AM CDT Acute CVA (cerebrovascular accident) (HC) CBC WITH AUTO DIFFERENTIAL Routine 01/28/2025 11:43 AM CDT Fatigue, unspecified type ANTI HCV Routine 06/05/2019 1:53 PM CDT Need for hepatitis C screening test XR DXA BONE DENSITY 2 SITES AXIAL Routine 10/19/2011 1:43 PM MARKETING ACCOUNT MANAGER Osteoporosis screening from Last 3 Months or Most Recently Relevant to Health Maintenance Results * (ABNORMAL) BASIC METABOLIC PANEL (04/15/2025 11:09 AM CDT) Only the most recent of2 resultswithin the time period is included. GLUCOSE 82 65 - 99 mg/dL [facility] Comment: Fasting reference interval UREA NITROGEN (BUN) 17 7 - 25 mg/dL [facility] CREATININE 1.26(H) 0.60 - 1.00 mg/dL [facility] EGFR 43(L) > OR = 60 mL/min/1.7 3m2 [facility] BUN/CREATININE RATIO 13 6 - 22 (calc) [facility] SODIUM 133(L) 135 - 146 mmol/L [facility] POTASSIUM 5.2 3.5 - 5.3 mmol/L [facility] CHLORIDE 99 98 - 110 mmol/L [facility] CARBON DIOXIDE 29 20 - 32 mmol/L [facility] ELECTROLYTE BALANCE 5(L) 7 - 17 mmol/L (calc) [facility] CALCIUM 9.8 8.6 - 10.4 mg/dL [facility] Blood BLOOD SPECIMEN / Unknown 04/15/2025 11:09 AM CDT 04/15/2025 11:09 AM CDT Blanca MARCELINO CHEMISTRY Final R esult [facility] [address] [address], [facility] [address] [place] [address] * HEMOGLOBIN (03/18/2025 11:03 AM CDT) HEMOGLOBIN 11.8 11.7 - 15.5 g/dL [facility] Blood BLOOD SPECIMEN / Unknown 03/18/2025 11:03 AM CDT 03/18/2025 11:04 AM CDT Blanca MARCELINO HEMATOLOGY Final R esult [facility] [address] [place] [address], [facility] [address] [place] [address] * (ABNORMAL) CREATININE (03/18/2025 11:03 AM CDT) CREATININE 1.23(H) 0.60 - 1.00 mg/dL [facility] EGFR 45(L) > OR = 60 mL/min/1.73 m2 [facility] Blood BLOOD SPECIMEN / Unknown 03/18/2025 11:03 AM CDT 03/18/2025 11:04 AM CDT us Blanca MARCELINO CHEMISTRY Final R esult [facility] [address] [facility] [place] [address], [facility] [address] [place] [address] * XR KNEE WB 2 VIEWS BILATERAL AND 1 VIEW RIGHT (01/28/2025 12:05 PM CDT) Anatomical Region Laterality Modality KNEES, KNEE R Computed Radiogr aphy 01/29/2025 12:2 7 PM CDT Impressions 01/29/2025 12:27 PM CDT Right knee osteoarthritis. Dictated by Marco Antonio Milton MD @ 01/29/2025 12:27:08 PM (Electronically Signed) Narrative 01/29/2025 12:27 PM CDT For Patients: As a result of the Cures Act, medical imaging exams and procedure reports are released immediately into your electronic medical record. You may view this report before your referring provider. If you have questions, please contact your health care provider. INDICATION: Chronic pain of right knee. TECHNIQUE: Right knee three views with bilateral weight-bearing and patellofemoral views. COMPARISON: None. FINDINGS: Thhj-tx-[id number] tricompartmental degenerative changes of the right knee greatest in the lateral compartment, with medial and lateral compartment narrowing. Left knee arthroplasty shows no evidence of complication. No acute or other osseous abnormality. Small right suprapatellar effusion. Procedure Note Marco Antonio Milton DO - 01/29/2025 For Patients: As a result of the Cures Act, medical imagingexams and procedure reports are released immediately into your electronicmedical record. You may view this report before your referring provider.If you have questions, please contact your health care provider. INDICATION: Chronic pain of right knee. TECHNIQUE: Right knee three views with bilateral weight-bearing and patellofemoralviews. COMPARISON: None. FINDINGS: [id number] tricompartmental degenerative changes of the right kneegreatest in the lateral compartment, with medial and lateral compartmentnarrowing. Left knee arthroplasty shows no evidence of complication. Noacute or other osseous abnormality. Small right suprapatellar effusion. IMPRESSION: Right knee osteoarthritis. Dictated by Marco Antonio Milton MD @ 01/29/2025 12:27:08 PM (Electronically Signed) us Blanca MARCELINO GENERAL IMAGING Final R esult * LIPID PANEL W REFLEX MEASURED LDL (01/28/2025 11:43 AM CDT) Pathologist [facility] CHOLESTEROL, TOTAL 159 <200 mg/dL [facility] HDL CHOLESTEROL 75 > OR = 50 mg/dL [facility] TRIGLYCERIDES 61 <150 mg/dL [facility] LDL-CHOLESTEROL 70 mg/dL (calc) [facility] Comment: Reference range: <100 Desirable range <100 mg/dL for primary prevention; <70 mg/dL for patients with CHD or diabetic patients with > or = 2 CHD risk factors. LDL-C is now calculated using the Blaise-Parul calculation, which is a validated novel method providing better accuracy than the Friedewald equation in the estimation of LDL-C. Blaise SS et al. KD. 2013;310(19): 3323-9693 (http://education.88tc88.[employer]/faq/TJS119) CHOL/HDLC RATIO 2.1 <5.0 (calc) [facility] NON HDL CHOLESTEROL 84 <130 mg/dL (calc) [facility] Comment: For patients with diabetes plus 1 major ASCVD risk factor, treating to a non-HDL-C goal of <100 mg/dL (LDL-C of <70 mg/dL) is considered a therapeutic option. Blood BLOOD SPECIMEN / Unknown 01/28/2025 11:43 AM CDT 01/28/2025 11:43 AM CDT Blanca MARCELINO CHEMISTRY Final R esult [facility] [address] [place] [address], [place] [phone] [facility] [address] [place] [address] * TSH (01/28/2025 11:43 AM CDT) [facility] TSH 3.10 0.40 - 4.50 mIU/L [facility] Blood BLOOD SPECIMEN / Unknown 01/28/2025 11:43 AM CDT 01/28/2025 11:43 AM CDT Blanca MARCELINO CHEMISTRY Final R esult Performing Organization Address City/[facility] Co de Phone Number [facility] [employer] [facility] [address] [place] [address], [place] [phone] [facility] [address] [place] [address] * (ABNORMAL) CBC AND DIFFERENTIAL (01/28/2025 11:43 AM CDT) [facility] WHITE BLOOD CELL COUNT 6.2 3.8 - 10.8 Thousand/u L [facility] RED BLOOD CELL COUNT 3.93 3.80 - 5.10 Million/uL [facility] HEMOGLOBIN 11.6(L) 11.7 - 15.5 g/dL [facility] HEMATOCRIT 37.1 35.0 - 45.0 % [facility] MCV 94.4 80.0 - 100.0 fL [facility] MCH 29.5 27.0 - 33.0 pg [facility] MCHC 31.3(L) 32.0 - 36.0 g/dL [facility] Comment: For adults, a slight decrease in the calculated MCHC value (in the range of 30 to 32 g/dL) is most likely not clinically significant; however, it should be interpreted with caution in correlation with other red cell parameters and the patient's clinical condition. RDW 12.2 11.0 - 15.0 % [facility] PLATELET COUNT 270 140 - 400 Thousand/u L [facility] MPV 9.9 7.5 - 12.5 fL [facility] ABSOLUTE NEUTROPHILS 3,863 1,500 - 7,800 cells/uL [facility] ABSOLUTE LYMPHOCYTES 1,426 850 - 3,900 cells/uL [facility] ABSOLUTE MONOCYTES 465 200 - 950 cells/uL [facility] ABSOLUTE EOSINOPHILS 378 15 - 500 cells/uL [facility] ABSOLUTE BASOPHILS 68 0 - 200 cells/uL [facility] NEUTROPHILS 62.3 % [facility] LYMPHOCYTES 23.0 % [facility] MONOCYTES 7.5 % [facility] EOSINOPHILS 6.1 % [facility] BASOPHILS 1.1 % [facility] Blood BLOOD SPECIMEN / Unknown 01/28/2025 11:43 AM CDT 01/28/2025 11:43 AM CDT Blanca MARCELINO HEMATOLOGY Final R esult [facility] [address] [place] [address], [facility] [address] [place] [address] * ANTI HCV (06/05/2019 1:53 PM CDT) Pathologist [facility] HEPATITIS C ANTIBODY Non-React lisa Non-React lisa 06/05/2019 9:48 PM CDT [facility] Comment:Antibodies to HCV no t detected; does not exclude the possibility of exposure to HCV. Blood BLOOD SPECIMEN / Unknown Venipuncture / Unknown 06/05/2019 1:53 PM CDT 06/05/2019 1:53 PM CDT us Blanca MARCELINO SEND OUTS Final R esult [facility] [address] [place] [address], [place] * XR DEXA BONE DENSITY 2 SITES (10/19/2011 1:43 PM MARKETING ACCOUNT MANAGER) Anatomical Region Laterality Modality Spine, HIPS, HIPL, HIPR Other Narrative 10/27/2011 7:45 AM MARKETING ACCOUNT MANAGER Please see scanned document for results of this study. Procedure Note Blanca Rush PA - 10/27/2011 Please see scanned document for results of this study. us Royal Livingston MD DEXA Final Result from Last 3 Months or Most Recently Relevant to Health Maintenance Insurance MEDICARE PB ONLY FOR LIFE MEDICARE PART B HB ONLY MEDICARE PART A HB ONLY Member Subscriber Plan / Payer (Ef fective 2009-Present) Name:Farshad Maya Member ID:[id number] Relation to Subscriber:Self Name:Farshad Maya Subscriber ID:[id number] Payer ID:Not on file Group ID:Not on file Type:Not on file Address: ATTN: CLAIMS [id number] MEDICARE PPS [employer] Advance Directives Documents on File Type Date Recorded Patient [employer] Expl anation Healthcare Directive 10/21/2017 3:05 PM HE ALTHCARE DIRECTIVE, SATISH, 10/20/17 * Full Code (Latest Code Status on File) Date Activated Date Inactivated Comments 09/26/2021 7:52 AM 09/26/2021 1:08 PM Question Answer Comments Code Status Discussion: Reviewed Preferences * Full Code Date Activated Date Inactivated Comments 09/23/2021 2:05 PM 09/26/2021 7:52 AM Question Answer Comments Code Status Discussion: Unable to Assess Preferences, Provider to review later * Full Code Date Activated Date Inactivated Comments 09/23/2021 2:01 PM 09/23/2021 2:05 PM Question Answer Comments Code Status Discussion: Other Care Teams [employer] Relationship Specialty Start Date End Date Blanca Rush PA [address] [place] [address] PCP - General Family Practice 09/12/13
--- NOTE | 2025-04-23 11:37 | CRLHL7_ITS ---
For Patients: As a result of the Century Cures Act, medical imaging exams and procedure reports are released immediately into your electronic medical record. You may view this report before your referring provider. If you have questions, please contact your health care provider. INDICATION: Fell down the steps and hit cement landing. COMPARISON: 06/09/2022 TECHNIQUE: CT of the brain / head without intravenous contrast. Multiplanar axial, coronal, and sagittal reformats were reconstructed. FINDINGS: No intracranial hemorrhage. Unchanged multifocal encephalomalacia. No acute or subacute cortically based infarct. Scattered white matter hypodensities may be related to chronic microvascular ischemia. No mass or mass effect. Normal ventricles. No skull fractures. No worrisome focal bone lesion. Frontal scalp contusion/laceration. IMPRESSION: No acute intracranial findings or intracranial hemorrhage. No skull fracture. Please note that all CT scans at this facility use dose modulation, iterative reconstruction, and/or weight-based dosing when appropriate to reduce radiation dose to as low as reasonably achievable. Dictated by Candice James MD @ 04/23/2025 12:18:26 PM (Electronically Signed)
--- NOTE | 2025-04-23 11:37 | CRLHL7_ITS ---
For Patients: As a result of the Century Cures Act, medical imaging exams and procedure reports are released immediately into your electronic medical record. You may view this report before your referring provider. If you have questions, please contact your health care provider. INDICATION: Fall down steps and hit cement landing. TECHNIQUE: CT chest, abdomen and pelvis acquired with 122 cc of Isovue 370 IV contrast. COMPARISON: Chest CT 04/09/2021. CT abdomen and pelvis 11/13/2017 FINDINGS: CHEST: Cardiovascular structures: Heart size is normal. Thoracic aorta and main pulmonary artery are normal in caliber. Mediastinum and miryam: No mass or adenopathy. Lungs and pleura: Mild dependent lower lobe atelectasis versus scarring. No suspicious nodule. No consolidation, pleural effusion, or pneumothorax. Chest wall and axilla: No mass or adenopathy. Bones: Mild T3 compression fracture, age-indeterminate. ABDOMEN AND PELVIS: Liver: Unremarkable. No sign of acute injury. Gallbladder and bile ducts: Status post cholecystectomy. No abnormal biliary ductal dilatation. Pancreas: 1.6 cm hypodense lesion within the pancreatic body (). This is new since the prior CT Spleen: Unremarkable. No sign of acute injury. Adrenal glands: Unchanged tiny bilateral adrenal nodules. Kidneys: Unremarkable. GI tract: Small hiatal hernia. Prior sigmoidectomy. Diverticulosis without pericolonic inflammation. No obstruction. Prior appendectomy. Vascular structures: Normal caliber abdominal aorta with mild atherosclerotic calcification. Mesenteric arteries are patent. Lymph nodes: Unremarkable. Miscellaneous: Mild subcutaneous stranding lateral to the left proximal femoral shaft. No free air or significant free fluid. Pelvic Organs: Status post hysterectomy. Bones: No acute fracture or dislocation. IMPRESSION: 1. Mild T3 compression fracture, age-indeterminate, possibly acute. Recommend correlation with site focal for tenderness. 2. Mild subcutaneous stranding lateral to the left proximal femoral shaft. No underlying fracture. 3. New 1.6 cm hypodense lesion within the pancreatic body, could represent a side branch intraductal papillary mucinous neoplasm; however, malignancy cannot be entirely excluded. Recommend pancreatic MRI for further evaluation. Please note that all CT scans at this facility use dose modulation, iterative reconstruction, and/or weight-based dosing when appropriate to reduce radiation dose to as low as reasonably achievable. Dictated by Willam Roper MD @ 04/23/2025 12:32:26 PM (Electronically Signed)
--- NOTE | 2025-04-23 11:37 | CRLHL7_ITS ---
For Patients: As a result of the Cures Act, medical imaging exams and procedure reports are released immediately into your electronic medical record. You may view this report before your referring provider. If you have questions, please contact your health care provider. INDICATION: Fell down the steps and hit cement landing. COMPARISON: None. TECHNIQUE: CT of the cervical spine without contrast. Multiplanar axial, coronal, and sagittal reformats were reconstructed. FINDINGS: No fracture. Normal alignment. Multilevel moderate to advanced disc degenerative change. Multilevel moderate to advanced facet arthritis. No severe neural foraminal narrowing. No or central canal stenosis. No destructive bony lesions. No cervical prevertebral soft tissue swelling. IMPRESSION: No acute or traumatic findings on cervical spine CT. Please note that all CT scans at this facility use dose modulation, iterative reconstruction, and/or weight-based dosing when appropriate to reduce radiation dose to as low as reasonably achievable. Dictated by Candice Jmaes MD @ 04/23/2025 12:20:13 PM (Electronically Signed)
--- NOTE | 2025-04-23 11:40 | ED.GENADULT ---
HPI - General Adult General Date Seen: 04/23/25 Chief complaint: Fall/Minor Trauma Stated complaint: fell Time Seen by Provider: 04/23/25 11:37 History of Present Illness HPI narrative: 79-year-old female presenting to the ER today by private car, driven here by her . She lives at home with her in their house. She does have some baseline gait instability and uses a cane to walk around. She was using her cane and walking down the steps to the basement her home today when she lost her balance and fell. She describes a trip and fall rather than a fainting episode. She think she fell down most of a flight of carpeted steps and came to rest on the basement floor. Her had a lift chair for her and so he brought it down to the basement and got her out. She was able to ambulate. She does not think she hurt her pelvis, hips, or lower extremities. She did hit her head and has some bleeding from a laceration on her upper forehead. She has a headache. She is confused. Mildly nauseous. She does not think she has a neck ache. She is having significant pain across her anterior upper chest from the fall. It hurts to breathe. She denies abdominal pain. does not know of any allergies but in her medical record, she is listed to be allergic to lisinopril and amoxicillin She is on Plavix. Last dose this morning. Not sure of her other meds. She last ate breakfast this morning. Related Data Home Medications ?Medication ?Instructions ?Recorded ?Confirmed atorvastatin 10 mg tablet 10 mg HS 06/09/22 08/06/24 clopidogrel 75 mg tablet 75 mg DAILY 06/09/22 08/06/24 memantine 5 mg tablet 5 mg 06/09/22 08/06/24 albuterol sulfate 90 mcg/actuation inhalation 08/06/24 08/06/24 aerosol inhaler citalopram 40 mg tablet 40 mg PO DAILY 08/06/24 08/06/24 furosemide 20 mg tablet 20 mg PO DAILY 08/06/24 08/06/24 levothyroxine 88 mcg tablet 88 mcg PO DAILY 08/06/24 08/06/24 metoprolol tartrate 25 mg tablet 25 mg PO BID 08/06/24 08/06/24 nystatin 100,000 unit/gram topical topical DAILY 08/06/24 08/06/24 powder rabeprazole 20 mg tablet,delayed 20 mg PO DAILY 08/06/24 08/06/24 release tizanidine 4 mg tablet 4 mg PO BID 08/06/24 08/06/24 triamcinolone acetonide 0.5 % applic topical BID 08/06/24 08/06/24 topical cream valsartan 160 mg tablet mg PO 08/06/24 08/06/24 Previous Rx's ?Medication ?Instructions ?Recorded levetiracetam 500 mg tablet 500 mg PO BID #60 tabs 06/09/22 (Keppra) hydrocodone 5 mg-acetaminophen 325 1 tab PO Q6H PRN pain #10 tabs 04/23/25 mg tablet ondansetron 4 mg disintegrating 4 mg PO Q8H PRN nausea and 04/23/25 tablet vomiting #10 tabs Allergies Allergy/AdvReac Type Severity Reaction Status Date / Time lisinopril Allergy Mild Cough Verified 04/23/25 12:20 amoxicillin Allergy Rash Verified 04/23/25 12:20 PFSH PFS Social History Smoking Status: Former smoker What tobacco products do you use: cigarettes Smoking quit date/years: >15 years ago Do you use any of these nicotine containing products: None Second hand tobacco smoke exposure: No How often do you have a drink containing alcohol: 2-4 times a month How often do you have six or more drinks on one occasion: Never AUDIT-C Alcohol total score: 2 Non-prescribed substance use: denies use Exam Narrative: Exam Narrative: Primary Survey: A- patent. Speaking clearly. Phonation normal. No stridor. B- breathing easily. Lung sounds clear and equal. Oxygen saturation normal on room air C- no active bleeding. Blood pressure stable. Symmetric pulses and cap refill in 4 extremities. D- alert and oriented x3, he but is a little bit slow to respond to questions. She follows commands slowly but appropriately. GCS 15. Groaning due to her chest pain. No focal deficits. Secondary survey: Constitutional: Appears well-developed and well-nourished. Alert. Conversant. Non toxic. HENT: Head: No depressed skull fracture, Raccoon Eyes, Saavedra's sign, or hemotympanum. Face normal. TMs normal there is a 3 cm zigzag did Z shaped laceration on the patient's frontal forehead just above her her line, in the frontal midline. Does not involve the galea or frontalis. No underlying skull fracture. Nose: Nose normal. Mouth/Throat: Oral mucosa is clear and moist. no trismus. Pharynx normal. Tonsils symmetric. No tonsillar enlargement, erythema, or exudate. Eyes: Conjunctivae normal. EOM normal. Pupils equal, round, and reactive to light. No scleral icterus. Neck: He she does have some neck tenderness but no focal point tenderness. No step-off. Cannot clear her C-spine because of distracting injuries. Placed into a C-collar in the triage wheelchair before she is transitioned carefully to her bed. Normal range of motion. Neck supple. No tracheal deviation present. Cardiovascular: Normal rate, regular rhythm. No gallop. No friction rub. No murmur heard. Symmetric radial artery pulses Pulmonary/Chest: Effort normal. No stridor. No respiratory distress. No wheezes. No rales. No rhonchi . Marked bilateral anterior upper chest tenderness. Abdominal: Soft. Bowel sounds normal. No distension. No mass. Mild left upper quadrant tenderness. No rebound. No guarding. Musculoskeletal: No T or L-spine midline tenderness. She does have a superficial abrasion over the midline thoracic spine between her shoulder blades. No posterior ribcage tenderness. No crepitus. RUE: Normal range of motion. No tenderness. No deformity LUE: She has a superficial abrasion on the dorsum of the shoulder joint without any bony deformity. Normal range of motion in her shoulder. Clavicle and scapula nontender. She does have a little bit of bruising at the lower tip of the left scapula. Not a lot of tenderness there. Normal range of motion. No tenderness. No deformity. Superficial skin abrasion with a small flap of epidermis on the dorsum of the left hand MCP joint, 3rd finger. Was cleansed by nursing staff and antibiotic ointment and dressing were applied. Not suturable. No bony tenderness or deformity of the metacarpal, MCP, proximal phalanges, PIP, middle phalanges, DI P. Intact flexion and extension of the MCP, PIP, DI P. Normal distal capillary refill. No active bleeding. Intact digital nerve sensory function. Pelvis is stable. RLE: Normal range of motion. No edema. No tenderness. No deformity LLE: Normal range of motion. No edema. No tenderness. No deformity. Healed incision from old left knee replacement. Neurological: Alert but a little bit slow to respond to questions. oriented to person, place, and time. Normal strength. CN II-VII intact. No sensory deficit. GCS eye subscore is 4. GCS verbal subscore is 5. GCS motor subscore is 6. Normal coordination Skin: Skin is warm and dry. No rash noted. No pallor. Normal capillary refill. Psychiatric: Limited by injuries. Interact score operatively with her . He seems concerned but then also he needs to mention that he needs to go right home to let their little dog. Const: Vital Signs, click to edit/add: Vital Signs - 24 hr 04/23/25 11:31 04/23/25 11:42 04/23/25 11:45 Temperature 96.6 F L Pulse Rate 56 L Pulse Rate [Pulse Oximeter] 61 Respiratory Rate 22 32 H Blood Pressure 122/80 Blood Pressure [Ri ght Upper Arm] 187/84 H Pulse Oximetry 97 100 Oxygen Delivery Me thod Room Air 04/23/25 12:11 04/23/25 12:12 04/23/25 12:15 Temperature Pulse Rate 60 60 58 L Pulse Rate [Pulse Oximeter] Respiratory Rate 13 19 11 L Blood Pressure 181/76 H Blood Pressure [Ri ght Upper Arm] Pulse Oximetry 97 90 87 L Oxygen Delivery Me thod 04/23/25 12:22 04/23/25 12:23 04/23/25 12:30 Temperature Pulse Rate 56 L 56 L 55 L Pulse Rate [Pulse Oximeter] Respiratory Rate 12 11 L 7 L Blood Pressure 169/71 H Blood Pressure [Ri ght Upper Arm] Pulse Oximetry 90 97 96 Oxygen Delivery Me thod 04/23/25 12:32 04/23/25 12:42 04/23/25 12:45 Temperature Pulse Rate 57 L 54 L 55 L Pulse Rate [Pulse Oximeter] Respiratory Rate 15 11 L 10 L Blood Pressure 163/71 H 173/78 H Blood Pressure [Ri ght Upper Arm] Pulse Oximetry 97 95 93 Oxygen Delivery Me thod 04/23/25 12:52 04/23/25 13:00 04/23/25 13:02 Temperature Pulse Rate 54 L 55 L 55 L Pulse Rate [Pulse Oximeter] Respiratory Rate 20 24 10 L Blood Pressure 166/78 H 179/87 H Blood Pressure [Ri ght Upper Arm] Pulse Oximetry 97 95 95 Oxygen Delivery Me thod 04/23/25 13:12 04/23/25 13:15 04/23/25 13:22 Temperature Pulse Rate 55 L 53 L 52 L Pulse Rate [Pulse Oximeter] Respiratory Rate 5 L 17 12 Blood Pressure 190/81 H 171/73 H Blood Pressure [Ri ght Upper Arm] Pulse Oximetry 95 95 96 Oxygen Delivery Me thod 04/23/25 13:23 04/23/25 13:30 04/23/25 13:32 Temperature Pulse Rate 53 L 51 L 53 L Pulse Rate [Pulse Oximeter] Respiratory Rate Blood Pressure 167/96 H Blood Pressure [Ri ght Upper Arm] Pulse Oximetry 94 93 96 Oxygen Delivery Me thod 04/23/25 13:42 04/23/25 13:45 04/23/25 13:52 Temperature Pulse Rate 52 L 52 L 53 L Pulse Rate [Pulse Oximeter] Respiratory Rate 14 11 L 16 Blood Pressure 190/76 H 195/78 H Blood Pressure [Ri ght Upper Arm] Pulse Oximetry 96 95 98 Oxygen Delivery Me thod 04/23/25 14:00 04/23/25 14:02 04/23/25 14:12 Temperature Pulse Rate 52 L 52 L 52 L Pulse Rate [Pulse Oximeter] Respiratory Rate 10 L 9 L Blood Pressure 165/72 H 182/70 H Blood Pressure [Ri ght Upper Arm] Pulse Oximetry 97 96 95 Oxygen Delivery Me thod 04/23/25 14:15 Temperature Pulse Rate 53 L Pulse Rate [Pulse Oximeter] Respiratory Rate 9 L Blood Pressure Blood Pressure [Ri ght Upper Arm] Pulse Oximetry 94 Oxygen Delivery Me thod Course Vital Signs Vital signs: Initial Vital Signs Temperature 96.6 F L 04/23/25 11:31 Temperature Source Temporal Artery Scan 04/23/25 11:31 Pulse Rate 61 04/23/25 11:31 Respiratory Rate 22 04/23/25 11:31 Blood Pressure 187/84 H 04/23/25 11:31 Blood Pressure Mean 118 H 04/23/25 11:31 Blood Pressure Position Sitting 04/23/25 11:31 Pulse Oximetry 97 04/23/25 11:31 Oxygen Delivery Method Room Air 04/23/25 11:31 Vital Signs Temperature 96.6 F L 04/23/25 11:31 Pulse Rate 61 04/23/25 11:31 Respiratory Rate 22 04/23/25 11:31 Blood Pressure 187/84 H 04/23/25 11:31 Pulse Oximetry 97 04/23/25 11:31 Oxygen Delivery Method Room Air 04/23/25 11:31 Temperature 96.6 F L 04/23/25 11:31 Pulse Rate 53 L 04/23/25 14:15 Respiratory Rate 9 L 04/23/25 14:15 Blood Pressure 182/70 H 04/23/25 14:12 Pulse Oximetry 94 04/23/25 14:15 Oxygen Delivery Method Room Air 04/23/25 11:31 Medications Administered Medications: Discontinued Medications Generic Name Dose Route Start Last Admin Trade Name Freq PRN Reason Stop Dose Admin Hydrocodone Bitart/Acetaminophen 1 tab 04/23/25 13:20 04/23/25 13:27 Hydrocodone-Acetamin 5-325 Mg 1 Tab PO 04/23/25 13:21 1 tab ONCE ONE Administration Fentanyl 50 mcg 04/23/25 11:37 04/23/25 12:18 Fentanyl 100 Mcg/2 Ml Inj IVP 04/23/25 11:38 50 mcg ONCE ONE Administration Lidocaine/Epinephrine 20 ml 04/23/25 12:51 04/23/25 13:23 Lidocaine 1%-Epi 1:100,000 INFILTRATI 04/23/25 12:52 20 ml ONCE ONE Administration Ondansetron HCl 4 mg 04/23/25 11:37 04/23/25 12:15 Ondansetron 2 Mg/Ml Inj IVP 04/23/25 11:38 4 mg ONCE ONE Administration Medical Decision Making MDM Narrative Medical decision making narrative: 79-year-old female presenting to the ER today by private car from her home after what is thought to be a mechanical accidental trip and fall down the steps to her basement. It sounds like she fell down multiple steps, possibly almost the whole flight of stairs. She has injuries to her head and face, upper chest, also possibly neck, abdomen. She denies any pain in her hip her pelvis and is able to bear weight and walk. 1. Head injury: Differential includes intracranial injuries (e.g. skull fracture, epidural hematoma, subdural hematoma, intracerebral hemorrhage, and traumatic subarachnoid hemorrhage), verses concussion or other traumatic brain injury. CT imaging was obtained and fortunately was normal. At this time it appears that the patient's symptoms are due to a concussion. The patient/family understand that they must return if any red flags appear/develop in the coming hours/days, as this may represent an indication to perform a repeat CT scan or further evaluation. I have noted that red flags include: headaches that get worse, increased drowsiness, strange behavior, repetitive speech, seizures, repeated vomiting, growing confusion, increased irritability, slurred speech, weakness or numbness, and loss of responsiveness. This information will also be provided in writing at discharge. I have discussed the second impact syndrome, and the importance of not sustaining repeated concussion in the next 1-2 weeks. 2. Cervical spine: The cannot clear C-spine by clinical criteria because of distracting injuries. The C-spine CT is normal. She has no focal neurologic deficits to suggest spinal cord injury. 3. No T or L-spine tenderness or other signs of spine injury on her primary survey. However on CT scan there is mention of a possible age indeterminate T3 compression fracture. On secondary survey, She does have a superficial abrasion there and mild tenderness. . Based on this I do suspect this is probably is an acute T3 fracture. Overall based on mildness of compression, absence of any retropulsion of fragments, this would be a nonsurgical injury. She is not having any symptoms of spinal cord injury. 4. Her most severe area of pain is in her upper chest. Fortunately lung sounds are clear and equal. Oxygen saturations are normal here blood pressure is actually hypertensive. He EKG shows no ischemia. CT scan of the patient's chest shows no evidence for any rib or sternal fracture, mediastinal hematoma, hemothorax/pneumothorax, aortic injury. CT scan of her chest does suggest a mild T3 compression fracture which may be acute. However she is not actually having any pain in the back of her chest on exam and palpation. 5. She does have a laceration to her upper forehead/frontal scalp. Per medical record her tetanus is up-to-date, in 2018. The wound is zigzag and jagged but we were able to close it using hair apposition technique and Dermabond. Discussed wound care, infection precautions and precautions for return to the ER. 6. Incidental note is made of a pancreatic lesion on her abdomen CT. Recommended outpatient MRI follow-up for this. Discussed with the patient, and with her . They will follow-up with her PCP next week to arrange MRI imaging. 7. Disposition. Discussed options for pain control and disposition. Patient wants to go home. She did well with oral Otis here in the ER and then did well with an ambulation trial. Discussed with the patient and her they both want to go home today. They do not want to be admitted for pain control or supportive care. The patient's questions have been answered. They have a responsible adult to accompany them home. Prescriptions for Otis and Zofran provided. Opiate precautions reviewed. Lab Data Labs: Lab Results 04/23/25 04/23/25 Range/Units 11:35 11:45 WBC 8.26 (4.50-11.00) K/uL RBC 4.19 (4.00-5.20) m/uL Hgb 12.2 (12.0-16.0) gm/dL Hct 37.7 (33.0-51.0) % MCV 90 (80-100) fL MCH 29 (26-34) pg MCHC 32 (32-36) gm/dL RDW Coeff of Sruthi 11.9 (11.5-15.5) % Plt Count 269 (140-440) K/uL Neut % (Auto) 61.3 (42.0-72.0) % Lymph % (Auto) 26.9 (20-44) % Lyman % (Auto) 6.8 (0.0-11.0) % Eos % (Auto) 3.4 (0.0-7.0) % Baso % (Auto) 0.8 (0.0-3.0) % Neut # (Auto) 5.06 (1.7-7.0) K/uL Lymph # (Auto) 2.22 (0.90-2.90) K/uL Lyman # (Auto) 0.60 (0.00-0.90) K/UL Eos # (Auto) 0.28 (0.00-0.50) K/uL Baso # (Auto) 0.07 (0.00-0.30) K/uL Abs Immat Gran (auto) 0.07 (0.00-0.30) K/uL Imm/Tot Granulo (auto) 0.8 % INR 1.07 (0.91-1.10) Sodium 129 L (135-149) mmol/L Potassium 4.4 (3.6-5.1) mmol/L Chloride 97 (96-114) mmol/L Carbon Dioxide 25 (20-32) mmol/L Anion Gap 7 (7-15) mEq/L BUN 16 (7-30) mg/dL Creatinine 1.2 (0.5-1.5) mg/dL Estimated GFR 46 ml/min Glucose 101 (60-115) mg/dL Lactate 1.9 (0.5-1.9) mmol/L Calcium 9.8 (8.4-10.6) mg/dL Troponin I < 0.01 (0.01-0.04) ng/mL Ethyl Alcohol < 0.01 (0.01-0.03) % POC Glucose 110 (60-115) mg/dl POC Creatinine 1.3 (0.6-1.3) mg/dl POC Troponin I 0.01 (0.01-0.04) ng/ml Imaging Data CT scan - head: Attestation: I have reviewed the pertinent imaging results. My impression: Reviewed as the patient was on the CT scanner. No obvious bleed Radiologist's impression: IMPRESSION: No acute intracranial findings or intracranial hemorrhage. No skull fracture. CT cervical spine: Attestation: I have reviewed the pertinent imaging results. Radiologist's impression: IMPRESSION: No acute or traumatic findings on cervical spine CT. CT Chest/Ab/Pelvis: My impression: Reviewed as it was coming off the CT scanner. No obvious hemopneumothorax. No obvious displaced rib or sternal fracture. No obvious internal peritoneal fluid or solid organ injury. Radiologist's impression: IMPRESSION: 1. Mild T3 compression fracture, age-indeterminate, possibly acute. Recommend correlation with site focal for tenderness. 2. Mild subcutaneous stranding lateral to the left proximal femoral shaft. No underlying fracture. 3. New 1.6 cm hypodense lesion within the pancreatic body, could represent a side branch intraductal papillary mucinous neoplasm; however, malignancy cannot be entirely excluded. Recommend pancreatic MRI for further evaluation. ECG Data Attestation: I personally reviewed and interpreted this ECG as follows: Interpretation: Sinus bradycardia Rate 55 MT interval 184 Normal QRS axis No ST segment elevation or depression QT 464, QTC 443 Discharge Plan Discharge Clinical Impression: Compression fracture of T3 vertebra, Lesion of pancreas, Laceration of scalp, Fall down steps Patient Disposition: Home, Self-Care Condition: Stable Instructions: Vertebral Compression Fracture (ED), Skin Adhesive Care (ED), Facial Laceration (ED) Additional Instructions: Please follow-up with your regular doctor within 1 week for recheck. When you follow-up, your doctor can recheck for your pain and see IR injuries are healing. Also, have your doctor review your CT scan from today and arrange an MRI to look at your pancreas. For your forehead laceration-keep the area clean and dry. The skin glue should keep it covered and hold the wound together while it heals. After 7 days you can gently wash the area when your in the shower and the glue will gradually dissolve and fall out. While your forehead wound is healing, watch for signs of infection (redness, swelling, pus draining from the wound) and if you have any concerns, please return to the ER right away to be rechecked. Your scan does show that you have a fracture through the 3rd thoracic vertebrae. This fracture will be painful while it heals but should heal over the next month or 2. You can treat your pain with regular Tylenol or with the prescription pain killer Otis. Be careful with Otis because it can cause dizziness, drowsiness, constipation, and can be addictive. As we discussed, please return to the ER right away if you have worsening symptoms such as uncontrolled back pain, chest pain, trouble breathing, dizziness or lightheadedness, nausea, severe headache, blurry vision, or if you have any other concerns. Prescriptions: New hydrocodone-acetaminophen 5-325 mg tablet 1 tab PO Q6H PRN (Reason: pain) Qty: 10 0RF ondansetron 4 mg tablet,disintegrating 4 mg PO Q8H PRN (Reason: nausea and vomiting) Qty: 10 0RF No Action levothyroxine 88 mcg tablet 88 mcg PO DAILY citalopram 40 mg tablet 40 mg PO DAILY furosemide 20 mg tablet 20 mg PO DAILY metoprolol tartrate 25 mg tablet 25 mg PO BID albuterol sulfate 90 mcg/actuation HFA aerosol inhaler inhalation valsartan 160 mg tablet PO rabeprazole 20 mg tablet,delayed release (DR/EC) 20 mg PO DAILY nystatin 100,000 unit/gram powder topical DAILY tizanidine 4 mg tablet 4 mg PO BID triamcinolone acetonide 0.5 % cream topical BID atorvastatin 10 mg tablet 10 mg HS clopidogrel 75 mg tablet 75 mg DAILY memantine 5 mg tablet 5 mg levetiracetam [Keppra] 500 mg tablet 500 mg PO BID Qty: 60 2RF Follow Up/Referrals: Blanca Rush PA-C [Primary Care Provider, [facility]] Stand Alone Forms: [facility] Info Instructions Procedures Laceration Frontal scalp laceration: Pre procedure diagnosis: Frontal scalp laceration Verification/time out: correct patient, correct site and correct procedure Site: scalp (3 cm, zigzag Z shaped laceration. Does not involve the galea or frontalis muscle.) Description: irregular (Zigzag Z shape) Depth: simple, single layer Local Anesthetic: lidocaine 1% and with epi Amount of anesthesia used (mL): 4 Pre-repair: wound explored Skin layer closed with: other (Dermabond and hair apposition technique)
[2025-04-23 11:46] LABS: Creatinine, Point-of-Care* 1.3 mg/dl (0.6-1.3); Glucose, Point-of-Care* 110 mg/dl (60-115)
[2025-04-23 11:51] LABS: Hematocrit* 37.7 % (33.0-51.0); Hemoglobin* 12.2 gm/dL (12.0-16.0); Immature Granulocytes Abs Auto 0.07 K/uL (0.00-0.30); Immature Granulocytes Pct Auto 0.8 %; Lymphocytes Absolute Auto 2.22 K/uL (0.90-2.90); Mean Corpuscular HGB Conc 32 gm/dL (32-36); Mean Corpuscular Hemoglobin 29 pg (26-34); Mean Corpuscular Volume 90 fL (80-100); RDW Coefficient of Variation % 11.9 % (11.5-15.5); Red Blood Count* 4.19 m/uL (4.00-5.20); White Blood Count* 8.26 K/uL (4.50-11.00)
[2025-04-23 11:53] LABS: Troponin, Point-of-Care* 0.01 ng/ml (0.01-0.04)
[2025-04-23 11:57] LABS: Slide Review Reflex No
[2025-04-23 12:06] LABS: Chloride* 97 mmol/L (96-114); Potassium* 4.4 mmol/L (3.6-5.1); Sodium* 129 mmol/L (135-149)
[2025-04-23 12:09] LABS: Anion Gap 7 mEq/L (7-15); Blood Urea Nitrogen* 16 mg/dL (7-30); Calcium* 9.8 mg/dL (8.4-10.6); Carbon Dioxide* 25 mmol/L (20-32); Creatinine* 1.2 mg/dL (0.5-1.5); Estimated Glomerular Filt Rate 46 ml/min; Glucose* 101 mg/dL (60-115); INR 1.07 (0.91-1.10); Prothrombin Time 14.7 Seconds
[2025-04-23 12:11] LABS: Ethanol* < 0.01 % (0.01-0.03)
[2025-04-23 12:12] LABS: Lactate* 1.9 mmol/L (0.5-1.9)
[2025-04-23] MEDS: ONDANSETRON 2 MG/ML inj 4 MG IVP (12:15)
[2025-04-23] MEDS: LIDOCAINE 1%-EPI 1:100,000 20 ML INFILTRATI (13:23)
[2025-04-23] MEDS: HYDROCODONE-ACETAMIN 5-325 MG 1 TAB PO (13:27)
== END 2025-04-23 15:01 | disposition home or self-care (01) ==
PROVIDERS: Emergency Provider Emergency Medicine; PCP Physician Assistant Medical
DX: S01.01XA Laceration without foreign body of scalp, initial encounter (principal); S22.039A Unspecified fracture of third thoracic vertebra, initial encounter for closed fracture; K86.89 Other specified diseases of pancreas; W10.9XXA Fall (on) (from) unspecified stairs and steps, initial encounter
CPT/HCPCS: 12002; 36415; 70450; 71260; 72125; 74177; 80048; 82077; 82565; 82947; 83605; 84484; 85025; 85610; 86850; 86900; 86901; 93005; 96374; 96375; 99284; 99291; A9270; J2405; J3010; Q9967

== ENCOUNTER 2025-05-09 15:03 | Outpatient (CLI) | payer MEDICARE, OTHER, SELFPAY ==
--- NOTE | 2025-05-09 15:30 | CRLHL7_ITS ---
For Patients: As a result of the Century Cures Act, medical imaging exams and procedure reports are released immediately into your electronic medical record. You may view this report before your referring provider. If you have questions, please contact your health care provider. INDICATION: Lesion of pancreas TECHNIQUE: 1.5 T MRI of the abdomen performed with pre and postcontrast T1 weighted imaging; T2 weighted imaging; in and out of phase imaging; diffusion weighted imaging. 22 mL Dotarem IV COMPARISON: CT abdomen pelvis 04/23/2025 FINDINGS: Lungs: The lung bases are clear. No pleural or pericardial effusion. Small hiatal hernia Liver: Homogeneous liver parenchyma. No hepatic masses. Biliary tree and gallbladder: No intra or extrahepatic biliary dilation. Prior cholecystectomy. Spleen: Unremarkable Pancreas: Normal pancreatic parenchyma. No pancreatic masses. No pancreatic duct dilation. Lobulated pancreatic body cystic lesion measuring 1.4 x 2.2 cm (8/18). Pancreatic tail cystic lesion measuring 0.7 cm. No abnormal enhancement or nodularity Adrenal glands: Unremarkable. Kidneys and ureters: No renal masses or hydronephrosis. GI tract: No evidence of obstruction or inflammation. Vasculature: The IVC and aorta are patent. No abdominal aortic aneurysm. Lymph nodes: No lymphadenopathy. Abdominal wall: Unremarkable Bones: Degenerative change of the imaged spine. 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 No pancreatic duct dilation or abnormal enhancement/nodularity. Recommend follow-up MRI in 6 months and/or consultation with Gastroenterology for consideration of EUS. Dictated by Jazmine Hernandez MD @ 05/10/2025 2:27:32 PM (Electronically Signed)
== END 2025-05-09 15:04 | disposition home or self-care (01) ==
LOC: MRI 15:04
PROVIDERS: PCP Physician Assistant Medical; Visit Provider Physician Assistant Medical
DX: K86.9 Disease of pancreas, unspecified (principal); K86.2 Cyst of pancreas
CPT/HCPCS: 74183; A9575